=== PATIENT | female | born 1950 | race Caucasian/White ===

== ENCOUNTER → 2016-10-17 | Outpatient (CLI) | payer MEDICARE, BC ==
[~2016-10-17] MED LIST: CALC-898 PO; FLUT16SP NS; OMEP40CA52 PO; POTA20TA10 PO; SIMV40TA5 PO; TRIA-56 PO
== END ==
LOC: WC.BC 11:05
DX: Z12.31 Encounter for screening mammogram for malignant neoplasm of breast (principal)
CPT/HCPCS: 77063; G0202